=== PATIENT | female | born 1970 | race Caucasian/White ===

== ENCOUNTER 2017-02-09 10:49 | Day surgery (SDC) | payer BC ==
[~2017-02-09 10:49] MED LIST: Buffered Lidocaine 0.9% SYRIN* 5 ML/SYR SYRINGE INTRADERM ONE; Sodium Citrate/Citric Acid* 15 ML UDC PO ONE
[2017-02-09] MEDS ORDERED: ceFAZolin 2 GM PREMIX (*) 2 GM/50 ML BAG IVPB ONE (11:17)
[2017-02-09] MEDS ORDERED: Sodium Citrate/Citric Acid* 15 ML UDC ONE (11:17)
[2017-02-09] MEDS ORDERED: Midazolam* 1 MG/ML 2 ML VIAL (2 MG) ONE (12:24)
[2017-02-09] MEDS ORDERED: fentaNYL* 50 MCG/ML 2 ML VIAL (100 MCG VIAL) ONE (12:24)
[2017-02-09] MEDS ORDERED: fentaNYL* 50 MCG/ML 2 ML VIAL (100 MCG VIAL) IV PRN (12:27)
[2017-02-09] MEDS ORDERED: oxyCODONE/Acetamin 5/325 MG* TAB PO PRN (12:27)
[2017-02-09] MEDS ORDERED: PROCHLORPERAZINE INJ 5 MG/ML 2 ML VIAL IV PRN (12:27)
[2017-02-09] MEDS ORDERED: Ondansetron INJ* 2 MG/ML VIAL IV PRN (12:27)
[2017-02-09] MEDS ORDERED: HYDROcodone/ACETAMIN 5-325 MG* 1 TAB PO PRN (12:27)
[2017-02-09] MEDS ORDERED: HYDROmorphone INJ* 1 MG/ML CARPUJECT SYRINGE IV PRN (12:27)
[2017-02-09] MEDS ORDERED: DiMENhydriNATE IV* 50 MG/ML VIAL IV PUSH PRN (12:27)
[2017-02-09] MEDS ORDERED: Ibuprofen TAB* 600 MG PO PRN (12:27)
[2017-02-09] MEDS ORDERED: oxyCODONE TAB* 5 MG TAB PO PRN (12:27)
[2017-02-09] MEDS ORDERED: Lidocaine 2% PF * 5 ML VIAL ONE (12:43)
[2017-02-09] MEDS ORDERED: Bupivacaine 0.25% SDV* 30 ML ONE (13:15)
[2017-02-09] MEDS ORDERED: Ketorolac INJ* 30 MG/ML 1 ML VIAL ONE (14:00)
[2017-02-09] MEDS ORDERED: Ondansetron INJ* 2 MG/ML VIAL ONE (14:00)
[2017-02-09 15:21] VITALS: BP 108/66
--- NOTE | 2017-02-10 04:02 | OP ---
DATE OF OPERATION: 02/09/17 [facility] DATE OF : 66 SURGEON: Xiang Ramirez MD ENT CONSULTANT: TRENA Lee ANESTHESIOLOGIST: Annette Bustos MD ANESTHESIA: Local MAC. 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 OPERATIVE PROCEDURE: Right small finger tenodermodesis with distal interphalangeal joint pinning. INDICATIONS: Wendie has tried extensive nonoperative treatment for the mallet finger. She is left with a 70- to 80-degree lag and developing swan-neck deformity. I talked to her about risks and benefits. She wanted to proceed. ESTIMATED BLOOD LOSS: 2 mL. COMPLICATIONS: None. FINDINGS: As expected. DESCRIPTION OF PROCEDURE: Wendie was seen in the preoperative holding area, came back to the operating room, she got some anesthesia, I performed a digital block. Arm was prepped and draped in the usual fashion. A time-out was performed. I begun by exsanguinating the arm with Esmarch and the tourniquet was inflated to 250 mmHg. I then ellipsed out a 3- to 4-mm piece of skin and terminal extensor tendon right down to the DIP joint. I then placed four 4-0 nylon sutures through full thickness to the skin and terminal extensor tendon. The finger tip was then brought into extension and the four sutures were tied off. I then placed one 0.045 K-wire retrograde across the DIP joint down to the subchondral bone of the middle phalanx. Everything looked good, so I went ahead and cleaned up the finger. The pin was clipped and bent and dressed with Xeroform. The finger was dressed with Hannah and a clamshell splint was applied and held in place with some Coban. She was then taken to recovery room in stable condition. [id number]/[facility] #: [id number] [facility]ITALLindsay
--- NOTE | 2017-02-10 15:48 | RAD ---
INDICATION: Right fifth finger surgery. COMPARISON: Comparison is made with a prior x-ray study of the right hand from October 28, 2016. TECHNIQUE: 12 seconds of intermittent fluoroscopic guidance were provided and 3 spot films of the right hand were obtained in the operating room. FINDINGS: The films demonstrate placement of a K wire spanning the middle and distal phalanges of the fifth finger. The bones are in normal alignment. IMPRESSION: INTRAOPERATIVE CONTROL FILMS. CPT II Codes: 6045F
== END 2017-02-09 15:33 | disposition home or self-care (01) ==
LOC: OREAST 10:49
PROVIDERS: ATTEND Orthopaedic Surgery Hand Surgery
DX: M20.011 Mallet finger of right finger(s) (principal); E11.9 Type 2 diabetes mellitus without complications; Z79.84 Long term (current) use of oral hypoglycemic drugs; Z79.4 Long term (current) use of insulin; E03.9 Hypothyroidism, unspecified; Z68.36 Body mass index [BMI] 36.0-36.9, adult; E28.2 Polycystic ovarian syndrome
CPT/HCPCS: 76000; A9270-GY; C1776; J0690; J1885; J2250; J2405; J3010

== ENCOUNTER 2018-10-30 16:59 | Emergency (ER) | payer BC ==
[2018-10-30 17:11] VITALS: BP 143/82
[2018-10-30] MEDS ORDERED: Tetan/Diph/Pertus SYR(Tdap)* 0.5 ML SYR(BOOSTRIX) use SYR IM ONE (17:49)
--- NOTE | 2018-10-30 18:10 | UC ---
Laceration HPI - HPI Summary HPI Summary: glass from picture frame fell and landed on her right middle toe lacerating it occurred >6 hours ago last tetanus about 10 yrs ago - History Of Current Complaint Chief Complaint: UCLaceration Stated Complaint: RT FOOT LAC Time Seen by Provider: 10/30/18 17:39 Hx Obtained From: Patient Hx Last Menstrual Period: 2 wk ago Laceration Location: Toe Mechanism Of Injury: Sharp Trauma Onset/Duration: Sudden Onset Severity: Mild Pain Intensity: 4 Pain Scale Used: 0-10 Numeric Aggravating Factors: Movement Feet (Multiple View): 1 - laceration - Allergies/Home Medications Allergies/Adverse Reactions: Allergies Allergy/AdvReac Type Severity Reaction Status Date / Time No Known Allergies Allergy Verified 10/30/18 17:11 PMH/Surg Hx/FS Hx/Imm Hx Previously Healthy: Yes - Surgical History Surgical History: Yes Surgery Procedure, Year, and Place: cyst R wrist; c-sections x 2 - Family History Known Family History: Positive: Hypertension - Social History Alcohol Use: None Substance Use Type: None Smoking Status (MU): Never Smoked Tobacco - Immunization History Most Recent Influenza Vaccination: fall 2011 Most Recent Tetanus Shot: 2009 Review of Systems All Other Systems Reviewed And Are Negative: Yes Constitutional: Positive: Negative Skin: Positive: Negative Eyes: Positive: Negative ENT: Positive: Negative Respiratory: Positive: Negative Cardiovascular: Positive: Negative Gastrointestinal: Positive: Negative Genitourinary: Positive: Negative Motor: Positive: Negative Neurovascular: Positive: Negative Musculoskeletal: Positive: Negative Neurological: Positive: Negative Psychological: Positive: Negative Physical Exam Triage Information Reviewed: Yes Appearance: Well-Appearing, No Pain Distress, Well-Nourished Vital Signs: Initial Vital Signs Temp 97.6 F 10/30/18 17:06 Pulse 73 10/30/18 17:06 Resp 20 10/30/18 17:06 BP 143/82 10/30/18 17:06 Pulse Ox 99 10/30/18 17:06 Vital Signs Reviewed: Yes Eyes: Positive: Conjunctiva Clear ENT: Positive: Hearing grossly normal. Negative: Pharyngeal erythema, Nasal congestion, Nasal drainage, Trismus, Muffled voice, Hoarse voice Neck: Positive: Supple, Nontender, No Lymphadenopathy Respiratory: Positive: Lungs clear, Normal breath sounds, No respiratory distress, No accessory muscle use Cardiovascular: Positive: RRR Musculoskeletal: Positive: ROM Intact, No Edema Neurological: Positive: Alert Psychological Exam: Normal Skin Exam: Other - laceration as noted Diagnostics - Radiology No standard instances Radiology Interpretation Completed By: ED Physician Summary of Radiographic Findings: no fracture Laceration Course/Dx - Course/Dx Course Of Treatment: wound cleaned and dressed not sutured due to infection risk lac 1 cm long 2 mm wide and 3 mm deep cleaned and dressed by RN - Diagnosis Provider Diagnosis: Laceration of third toe, right Discharge ED - Sign-Out/Discharge Documenting (check all that apply): Patient Departure All imaging exams completed and their final reports reviewed: No - Discharge Plan Condition: Stable Disposition: HOME Prescriptions: Cephalexin CAP* [Keflex CAP*] 500 mg PO QID #20 cap Patient Education Materials: Laceration Without Closure (ED) Print Language: LIBYAN Referrals: Ruddy Singh MD [Primary Care Provider] - Additional Instructions: CLEAN DAILY WITH SOAP AND WATER APPLY THIN FILM OF ANTIBIOTIC OINTMENT AND BANDAID POST OP SHOE RECHECK FOR CONCERNS OF INFECTION - Billing Disposition and Condition Condition: STABLE Disposition: Home
[2018-10-30] MEDS ORDERED: Aspirin 81 mg CHEW TAB* 81 MG TAB.CHEW PO ONE (18:11)
--- NOTE | 2018-10-31 07:58 | UC ---
- Progress Note Progress Note: Reviewed record and report of xray, with no fracture seen,confirming read of Dr. Paige. subq emphysema consistent with laceration. Has been treated with cephalexin Course/Dx - Diagnoses Provider Diagnoses: Laceration of third toe, right Discharge ED - Sign-Out/Discharge Documenting (check all that apply): Patient Departure All imaging exams completed and their final reports reviewed: Yes - Discharge Plan Condition: Stable Disposition: HOME Prescriptions: Cephalexin CAP* [Keflex CAP*] 500 mg PO QID #20 cap Patient Education Materials: Laceration Without Closure (ED) Print Language: TAMAZIGHT Referrals: Ruddy Singh MD [Primary Care Provider] - Additional Instructions: CLEAN DAILY WITH SOAP AND WATER APPLY THIN FILM OF ANTIBIOTIC OINTMENT AND BANDAID POST OP SHOE RECHECK FOR CONCERNS OF INFECTION - Billing Disposition and Condition Condition: STABLE Disposition: Home
== END 2018-10-30 18:37 | disposition home or self-care (01) ==
LOC: UCEAST 16:59
DX: S91.114A Laceration without foreign body of right lesser toe(s) without damage to nail, initial encounter (principal); W20.8XXA Other cause of strike by thrown, projected or falling object, initial encounter; Y92.9 Unspecified place or not applicable; Z23 Encounter for immunization
CPT/HCPCS: 90715; 99213; G0463